=== PATIENT | female | born 1985 | race Hispanic/Latino ===

== ENCOUNTER → 2019-03-26 | Day surgery (SDC) | payer OTHER ==
[~2019-03-26] MED LIST: AZITHROMYCIN250 MG PO; BENTYL10 MG PO; FENTANYL CITRATE/PF 100MCG/2 ML INJ ONE; GLYBURIDE5 MG PO; HYDROXYZINE HCL25 MG PO; HYOSCYAMINE 0.125 MG TAB ONE; LEXAPRO10 MG PO; LIPITOR10 MG PO; LISINOPRIL10 MG PO; METFORMIN HCL500 MG PO; MIDAZOLAM HCL 5MG/ML 2ML VIAL ONE; PANTOPRAZOLE SO40 MG PO; PROPOFOL IV EMULSION 10 MG/ML 50 ML VIAL ONE; ZOFRAN ODT4 MG PO; ZOFRAN8 MG PO
[2019-03-26 16:19] VITALS: BP 109/66
[2019-03-26 16:38] LABS: WBC,FECAL (FECAL LACTOFERRIN) POSITIVE (NEGATIVE)
--- NOTE | 2019-03-26 23:37 | Operative Report ---
DATE OF PROCEDURE: 03/26/2019 SURGEON: Ray Don MD PROCEDURES: EGD with biopsies and esophageal dilatation and colonoscopy with polypectomy and biopsies. INDICATIONS FOR EGD: Dysphagia, acid reflux. INDICATIONS FOR COLONOSCOPY: Chronic diarrhea, fecal urgency. MEDICATIONS: The patient was done under MAC, please see anesthesiologist's note. PROCEDURE IN DETAIL: With the patient in left lateral decubitus position, a flexible fiberoptic Olympus gastroscope was introduced into the esophagus under direct visualization without any difficulty. There was some patchy erythema noted in distal esophagus. A mild stricture was noted at the GE junction that was dilated to size 54-Grenadian Masterson. The scope was then advanced with ease into the stomach. Mucosa overlying the antrum and the body revealed some diffuse erythema and low-grade to moderate edema and biopsies were obtained and sent to stain for H pylori. The pylorus was of normal contour and shape and was intubated with ease and the scope was advanced all the way to the second portion of the duodenum. Biopsies were obtained from the proximal second portion and duodenal bulb to rule out sprue. The scope was then withdrawn back into the stomach and retroflexed. The mucosa overlying the fundus and cardia appeared to be within normal limits. The scope was then straightened out and was subsequently withdrawn. The patient tolerated the procedure well. IMPRESSION: 1. Distal esophagitis. 2. Esophageal stricture dilated to size 54-Grenadian Masterson. 3. Gastritis, biopsied. Biopsies sent to stain for Helicobacter pylori. 4. Rule out sprue. PLAN: Follow up histology. Increase Protonix to 40 mg 1 p.o. before meals b.i.d. The patient was then turned around. After adequate lubrication of the anal canal, a flexible fiberoptic Olympus colonoscope was inserted into the rectum with ease and advanced all the way to the cecum. Prep overall was suboptimal primarily in the right colon, but visualization was fair. One minute polyp was removed per the hot biopsy forceps in the cecum and the site was hemoclipped. The ileocecal valve was intubated and the scope was advanced into the terminal ileum. Biopsies were obtained. The scope was then withdrawn back into the colon. It was then withdrawn slowly and whatever was visualized the mucosa overlying the ascending and transverse appeared to be within normal limits. There were some mild patchy inflammatory changes noted in the left colon. Random biopsies were obtained. Similar findings were noted in the rectum and also biopsies were obtained. The scope was then retroflexed into the distal rectum and small internal hemorrhoids were noted, none of which was actively bleeding. The scope was then straightened out and it was subsequently withdrawn after securing an adequate stool specimen that was sent for the appropriate stool studies. The patient tolerated the procedure well. IMPRESSION: 1. Cecal polyp, hot biopsied, site hemoclipped. 2. Mild patchy left-sided colitis. 3. Proctitis, mild. 4. Internal hemorrhoids, none actively bleeding. PLAN: Follow up histology. Follow up stool studies. Initiate Bentyl 20 mg 1 p.o. t.i.d. VSL#3 one p.o. daily. Ray Don MD [facility] [place] /[id number]
[2019-03-27 12:12] LABS: C DIFFICILE TOXIN A&B AMP PROB NEGATIVE (NEGATIVE)
== END | disposition home or self-care (01) ==
LOC: OR 11:50
PROVIDERS: ATTEND Internal Medicine Gastroenterology
DX: K21.0 Gastro-esophageal reflux disease with esophagitis (principal); R13.10 Dysphagia, unspecified; K50.90 Crohn's disease, unspecified, without complications; R19.7 Diarrhea, unspecified; E11.9 Type 2 diabetes mellitus without complications; I10 Essential (primary) hypertension; K22.2 Esophageal obstruction; K29.70 Gastritis, unspecified, without bleeding; K63.5 Polyp of colon; K51.50 Left sided colitis without complications; K62.89 Other specified diseases of anus and rectum; K64.8 Other hemorrhoids; Z79.84 Long term (current) use of oral hypoglycemic drugs
CPT/HCPCS: 36415; 43239; 43450; 45384; 82948; 83630; 83993; 87045; 87177; 87328; 87493; 93005; J2250; J2704; J3010; 45378; 45380; 45385

== ENCOUNTER → 2021-05-18 | Day surgery (SDC) | payer OTHER ==
[~2021-05-18] MED LIST changes: +BUPROPION HCL75 MG PO; +GLUCAGON FOR INJ 1 MG VIAL ONE; +HYDROCHLOROTHIA25 MG PO; -HYOSCYAMINE 0.125 MG TAB ONE; +HYOSCYAMINE SULFATE 0.5 MG/ML INJ ONE; +LIDOCAINE HCL 2% LOCAL INJ 5 ML SDV VIAL INJ ONE; +LOSARTAN POTAS100 MG PO; -MIDAZOLAM HCL 5MG/ML 2ML VIAL ONE; +PHENTERMINE H37.5 MG PO; +PROPOFOL IV EMULSION 10 MG/ML 20 ML VIAL ONE; -PROPOFOL IV EMULSION 10 MG/ML 50 ML VIAL ONE; +PROZAC40 MG PO
[2021-05-18 13:00] VITALS: BP 132/91
== END | disposition home or self-care (01) ==
LOC: OR 05-04 06:38
PROVIDERS: ATTEND Internal Medicine Gastroenterology
DX: K20.90 Esophagitis, unspecified without bleeding (principal); Z86.010 Personal history of colon polyps; K29.50 Unspecified chronic gastritis without bleeding; K52.9 Noninfective gastroenteritis and colitis, unspecified; K92.0 Hematemesis; K31.89 Other diseases of stomach and duodenum; K21.9 Gastro-esophageal reflux disease without esophagitis; K62.89 Other specified diseases of anus and rectum; K64.8 Other hemorrhoids; R06.09 Other forms of dyspnea; R06.83 Snoring; I10 Essential (primary) hypertension; E78.00 Pure hypercholesterolemia, unspecified; E11.9 Type 2 diabetes mellitus without complications; F41.9 Anxiety disorder, unspecified; Z88.8 Allergy status to other drugs, medicaments and biological substances; Z88.4 Allergy status to anesthetic agent; Z91.041 Radiographic dye allergy status; Z01.810 Encounter for preprocedural cardiovascular examination; Z01.812 Encounter for preprocedural laboratory examination; Z20.822 Contact with and (suspected) exposure to COVID-19; Z79.84 Long term (current) use of oral hypoglycemic drugs; Z79.899 Other long term (current) drug therapy; Z68.35 Body mass index [BMI] 35.0-35.9, adult; Z80.0 Family history of malignant neoplasm of digestive organs
CPT/HCPCS: 36415; 43239; 43450; 45380; 81025; 82948; 93005; C9113; J1610; J1980; J2001; J2704; J3010; U0002; 45378

== ENCOUNTER → 2024-07-29 | Day surgery (SDC) | payer OTHER ==
[~2024-07-29] MED LIST changes: +MIDAZOLAM HCL 2 MG/2 ML VIAL ONE; -PROPOFOL IV EMULSION 10 MG/ML 20 ML VIAL ONE; +PROPOFOL IV EMULSION 50 ML IV ONE
[2024-07-29] MEDS: LACTATED RINGER'S 1,000 ML ONE (06:32)
[2024-07-29 09:45] VITALS: BP 118/74; PULSE 69; RESP 16; O2SAT 100
== END | disposition home or self-care (01) ==
LOC: OR 06:10
PROVIDERS: ATTEND Internal Medicine Gastroenterology
DX: K20.90 Esophagitis, unspecified without bleeding (principal); K63.5 Polyp of colon; K29.50 Unspecified chronic gastritis without bleeding; E88.2 Lipomatosis, not elsewhere classified; K44.9 Diaphragmatic hernia without obstruction or gangrene; K21.9 Gastro-esophageal reflux disease without esophagitis; K64.8 Other hemorrhoids; Z98.84 Bariatric surgery status; K80.20 Calculus of gallbladder without cholecystitis without obstruction; D64.9 Anemia, unspecified; E11.9 Type 2 diabetes mellitus without complications; I10 Essential (primary) hypertension; F17.290 Nicotine dependence, other tobacco product, uncomplicated; Z88.8 Allergy status to other drugs, medicaments and biological substances; Z88.4 Allergy status to anesthetic agent; Z91.041 Radiographic dye allergy status; Z01.810 Encounter for preprocedural cardiovascular examination
CPT/HCPCS: 43239; 43450; 45385; 93005; J1610; J1980; J2003; J2250; J2470; J2704; J3010; J7121; 45378

== ENCOUNTER → 2024-08-19 | Day surgery (SDC) | payer OTHER ==
[2024-08-18 08:51] LABS: BASOPHILS # (AUTO) 0.1 (0.0-0.1); BASOPHILS % 0.7 % (0.0-1.0); EOSINOPHILS # (AUTO) 0.2 (0.0-0.4); EOSINOPHILS % 2.5 % (0.0-6.0); HEMATOCRIT 39.2 % (34.2-44.1); HEMOGLOBIN 13.1 g/dL (12.0-16.0); LYMPHOCYTES # (AUTO) 2.6 (1.0-3.2); LYMPHOCYTES % 36.4 % (18.0-39.1); MEAN CORPUSCULAR HEMOGLOBIN 29.2 pg (28-32); MEAN CORPUSCULAR HGB CONC 33.4 g/dL (31-35); MEAN CORPUSCULAR VOLUME 87.3 fL (81-99); MONOCYTES # (AUTO) 0.3 (0.2-0.8); MONOCYTES % 4.5 % (4.4-11.3); NEUTROPHILS % 55.6 % (38.7-80.0); PLATELET COUNT 361 x10e3/uL (140-360); RED BLOOD COUNT 4.49 x10e6/uL (3.6-5.1); RED CELL DISTRIBUTION WIDTH 13.3 % (11.7-14.4); WHITE BLOOD COUNT 7.11 x10e3/uL (4.8-10.8)
[2024-08-18 09:31] LABS: ALBUMIN/GLOBULIN RATIO 1.2 (0.8-2.0); ANION GAP 13.9 mmol/L (8-16); BILIRUBIN,TOTAL 0.4 mg/dL (0.2-1.2); CALCIUM 9.1 mg/dL (8.4-10.2); CREATININE, SERUM 0.75 mg/dL (0.57-1.11); POTASSIUM 3.9 mmol/L (3.5-5.1); TOTAL PROTEIN 7.4 g/dL (6.5-8.1)
[~2024-08-19] MED LIST changes: +ACETAMINOPHEN 1000 MG/100 ML 100 ML IV ONE; +DEXAMETHASONE SOD PHOS INJ 4 MG/ML SDV ONE; +FAMOTIDINE 20 MG/2 ML VIAL IV ONE; -GLUCAGON FOR INJ 1 MG VIAL ONE; -HYOSCYAMINE SULFATE 0.5 MG/ML INJ ONE; -MIDAZOLAM HCL 2 MG/2 ML VIAL ONE; +ONDANSETRON HCL INJ 2MG/ML 2ML 2 MG/ML VIAL ONE; +PROPOFOL IV EMULSION 10 MG/ML 20 ML VIAL ONE; -PROPOFOL IV EMULSION 50 ML IV ONE; +ROCURONIUM BROMIDE 1 ML IV ONE; +SEVOFLURANE INHAL SOLN 250 ML PEN BTL ONE; +SUGAMMADEX SODIUM 200 MG/2 ML VIAL IV ONE; +ULTRAM 50MG50 MG PO
[2024-08-19] MEDS: LACTATED RINGER'S 1,000 ML ONE (06:55)
[2024-08-19] MEDS: CEFAZOLIN SODIUM 2 GM ONE (06:55)
[2024-08-19] MEDS: FENTANYL CITRATE/PF 100MCG/2 ML INJ ONE (08:45)
[2024-08-19] MEDS: METOCLOPRAMIDE HCL 10 MG/2ML VIAL ONE (09:00)
[2024-08-19] MEDS: ONDANSETRON HCL INJ 2MG/ML 2ML 2 MG/ML VIAL ONE (09:00)
[2024-08-19] MEDS: HYDROCODONE/APAP 5MG-325MG TAB ONE (09:40)
[2024-08-19 10:08] VITALS: BP 162/86; PULSE 61; RESP 18; O2SAT 98
== END | disposition home or self-care (01) ==
LOC: OR 06:07
PROVIDERS: ATTEND Surgery
DX: K80.10 Calculus of gallbladder with chronic cholecystitis without obstruction (principal); D64.9 Anemia, unspecified; E11.9 Type 2 diabetes mellitus without complications; I10 Essential (primary) hypertension; K21.9 Gastro-esophageal reflux disease without esophagitis; E66.3 Overweight; F17.290 Nicotine dependence, other tobacco product, uncomplicated; Z88.6 Allergy status to analgesic agent; Z88.8 Allergy status to other drugs, medicaments and biological substances; Z01.812 Encounter for preprocedural laboratory examination; Z68.30 Body mass index [BMI] 30.0-30.9, adult
CPT/HCPCS: 36415; 47562; 80053; 85025; 88304; J0131; J1100; J2003; J2405; J2704; J2765; J3010; J7121